=== PATIENT | female | born 1955 | race Caucasian/White ===

== ENCOUNTER → 2018-04-22 10:46 | Outpatient (CLI) | payer OTHER, SELFPAY ==
[2018-04-22 12:28] LABS: Appearance Urine UA SL CLOUDY; Bilirubin Urine UA NEGATIVE (NEGATIVE); Color Urine UA YELLOW; Glucose Urine UA NEGATIVE (Normal); Ketones Urine UA NEGATIVE (NEGATIVE); Leukocyte Esterase Urine UA NEGATIVE (NEGATIVE); Nitrite Urine UA POSITIVE (Negative); Occult Blood Urine UA 1+ (Negative); Protein Urine UA NEGATIVE (Negative); Urobilinogen Urine UA 0.2 E.U./dL (0.2)
[2018-04-22 12:36] LABS: Add Manual Diff / Slide Review NO; Basophils Percent Auto 0.7 % (0-2); Eosinophils Percent Auto 1.4 % (2-4); Hematocrit 40.4 % (36-46); Hemoglobin 13.7 g/dL (12.0-16.0); Lymphocytes Percent Auto 30.3 % (25-40); Mean Corpuscular HGB Conc 33.9 % (30-36); Mean Corpuscular Volume 94.3 fL (80-100); Neutrophils Absolute Auto 4100 /uL (3000-5900); Neutrophils Percent Auto 60.6 % (50-75); Platelet Count 261 X10^3/uL (150-400); Red Blood Cell Count 4.28 X10^6/uL (4.0-5.2); Red Cell Distribution Width 13.2 % (11.6-14.8); White Blood Cell Count 6.9 X10^3/uL (4.5-11.0)
[2018-04-22 12:52] LABS: Bacteria Urine Many (>30); Culture Indicated Urine Specimen Cultured; RBC Urine 1-5/HPF (0-5/HPF); Squamous Epithelial Cell Urine 1-5 /HPF; WBC Urine 10-30/HPF (0-5/HPF)
[2018-04-22 13:06] LABS: Alanine Aminotransferase 20 IU/L (9-52); Albumin 4.5 g/dL (3.5-5.0); Albumin Globulin Ratio 1.7 (1.0-2.8); Alkaline Phosphatase 47 U/L (38-126); Aspartate Aminotransferase 21 IU/L (14-36); BUN Creatinine Ratio 17.1 (6-22); Bilirubin Total 0.7 mg/dL (0.2-1.3); Blood Urea Nitrogen 12 mg/dL (7-17); Calcium 9.8 mg/dL (8.4-10.2); Carbon Dioxide 27 mmol/L (22-32); Chloride 101 mmol/L (98-107); Cholesterol 206 mg/dL (140-199); Estimated Glomerular Filt Rate > 60.0 mL/min (>60); Globulin 2.7 g/dL (1.7-4.1); Glucose 93 mg/dL (80-110); HDL Cholesterol 55 mg/dL (40-60); HEMOLYSIS < 15 (0-50); LDL Cholesterol Calculated 131 mg/dL (<100); Potassium 4.4 mmol/L (3.4-5.1); Sodium 139 mmol/L (137-145); Total Protein 7.2 g/dL (6.3-8.2); Triglycerides 101 mg/dL (35-150)
== END ==
PROVIDERS: PCP Family Medicine; Visit Provider Family Medicine
DX: Z13.220 Encounter for screening for lipoid disorders (principal); R00.2 Palpitations
CPT/HCPCS: 36415; 80053; 80061; 81003; 81015; 84443; 85025; 87077; 87086; 87186

== ENCOUNTER → 2018-05-21 13:11 | Outpatient (CLI) | payer OTHER, SELFPAY ==
--- NOTE | 2018-05-21 13:14 | DI.US.S_ITS ---
PROCEDURE: US CAROTID DOPPLER BI INDICATIONS: Bilateral carotid bruits and palpitations TECHNIQUE: Color and pulse Doppler interrogation was performed of both carotid systems, with image documentation and velocity measurements. COMPARISON: None. FINDINGS: Stenosis calculations are based on SRU (Society of Radiologists in Ultrasound) criteria. Right side: Brachial blood pressure: 145/78 mm Hg. Common carotid artery peak systolic velocity: 71 cm/sec. Internal carotid artery peak systolic velocity: 91 cm/sec. Internal carotid artery end diastolic velocity: 34 cm/sec. External carotid artery peak systolic velocity: 111 cm/sec. ICA/CCA peak systolic ratio: 1.28. Lees scale imaging description: Normal Percent internal carotid artery stenosis: None. Vertebral artery: Flow direction is antegrade. Left side: Brachial blood pressure: 140/75 mm Hg. Common carotid artery peak systolic velocity: 67 cm/sec. Internal carotid artery peak systolic velocity: 93 cm/sec. Internal carotid artery end diastolic velocity: 35 cm/sec. External carotid artery peak systolic velocity: 112 cm/sec. ICA/CCA peak systolic ratio: 1.38. Lees scale imaging description: Normal Percent internal carotid artery stenosis: None. Vertebral artery: Flow direction is antegrade. IMPRESSION: Normal carotid ultrasound Dictated by: Christopher Gustafson M.D. on 05/21/2018 at 14:33 Approved by: Christopher Gustafson M.D. on 05/21/2018 at 14:35
== END ==
PROVIDERS: PCP Family Medicine; Visit Provider Family Medicine
DX: R00.2 Palpitations (principal); R09.89 Other specified symptoms and signs involving the circulatory and respiratory systems
CPT/HCPCS: 93880

== ENCOUNTER → 2018-05-23 08:18 | Outpatient (CLI) | payer OTHER, SELFPAY ==
--- NOTE | 2018-05-23 | DI.ECHO.S_ITS ---
[facility] +---------+ : : [address] [place] : : : : [id number] : : : : Phone: [phone]+ Echocardiogram Report + + :Name: ARTUR STEARNS Study Date: 05/23/2018 Height: 68 in : :[facility] Exam Location: IS Weight: 130 lb : : Gender: Female BSA: 1.7 m2 : :: 1955 Age: 63 yrs BP: 138/70 mmHg: :Reason For Study: PALPITATIONS : :Ordering Physician: Maryellen : :[place] Performed By: Chloe Hoffman : :Referring: MARYELLEN SILVER : + + Interpretation Summary The left ventricle is normal in size, wall thickness, and systolic function without any focal wall motion abnormalities. The ejection fraction is estimated to be 55-60%. The right ventricle is normal in size and function. The right ventricular systolic pressure is estimated at 33 mmHg assuming a right atrial pressure of 3 mm Hg. The left atrium is moderately dilated. The right atrium is mildly dilated. There is no significant valvular heart disease. The aortic root is normal size. There is a trace loculated pericardial effusion. There are no echocardiographic or Doppler indications for cardiac tamponade. Procedure: A two-dimensional transthoracic echocardiogram with color flow and Doppler was performed. The study quality was technically adequate. There is no prior echocardiogram noted for this patient. The patient was in normal sinus rhythm during the exam. Short run of tachycardia. Left Ventricle: The left ventricle is normal in size, wall thickness, and systolic function without any focal wall motion abnormalities. The ejection fraction is estimated to be 55-60%. Assessment of diastolic parameters indicates normal left ventricular diastolic function and normal filling pressures. Right Ventricle: The right ventricle is normal in size and function. Atria: The left atrium is moderately dilated. The right atrium is mildly dilated. There is no Doppler evidence for an interatrial shunt. Mitral Valve: The mitral valve is normal. There is trace mitral regurgitation. Aortic Valve: The aortic valve is normal in structure and function. No aortic regurgitation is present. Tricuspid Valve: The tricuspid valve is normal. There is trace tricuspid regurgitation. The right ventricular systolic pressure is estimated at 33 mmHg assuming a right atrial pressure of 3 mm Hg. Pulmonic Valve: The pulmonic valve leaflets are thin and pliable; valve motion is normal. There is a trace or physiologic amount of pulmonic regurgitation. There is no significant valvular heart disease. Great Vessels: The aortic root is normal size. The ascending aorta is normal in size. The aortic arch is normal in size. The pulmonary is not well visualized. The IVC is of normal diameter and collapses greater than 50% with a sniff. This suggests a low right atrial pressure of 3 mm Hg. Pericardium/ Pleura There is a trace loculated pericardial effusion. There are no echocardiographic or Doppler indications for cardiac tamponade. There is no pleural effusion. MMode/2D Measurements & Calculations LVIDd: 4.2 cm LVOT diam: 2.3 cm LVIDs: 3.6 cm Ao root diam: 3.3 cm FS: 15.1 % asc Aorta Diam: 3.2 cm EPSS: 0.30 cm Ao Arch Diam (Prox Trans): 2.5 cm IVSd: 0.77 cm LVPWd: 0.88 cm LV barnhart. diameter/BSA (cm/m^2): 2.5 LV sys. diameter/BSA (cm/m^2): 2.1 LA A2 area: 27.6 cm2 RA long axis: 5.1 cm LA A4 area: 20.9 cm2 RA area: 17.7 cm2 LA length (vol): 6.1 cm RA vol: 52.7 ml LA vol: 80.2 ml RA : 31.0 ml/m2 LA vol index: 47.1 ml/m2 IVC diam: 0.95 cm RVD1 (basal): 3.4 cm RVD2 (mid): 2.2 cm TAPSE: 2.3 cm Doppler Measurements & Calculations Ao V2 max: 127.0 cm/sec LVOT Max Keny: 105.8 cm/sec Ao V2 mean: 83.0 cm/sec LV V1 max P.5 mmHg Ao max P.4 mmHg LV V1 VTI: 22.2 cm Ao mean P.2 mmHg CLAYTON(I,D): 3.5 cm2 Ao V2 VTI: 25.5 cm CLAYTON(V,D): 3.4 cm2 sev ratio: 0.87 CLAYTON indexed to BSA (cm^2/m^2): 2.1 MV E max keny: 77.3 cm/sec TR max keny: 275.5 cm/sec MV A max keny: 72.6 cm/sec TR max P.4 mmHg MV E/A: 1.1 PA V2 max: 75.8 cm/sec Med Peak E' Keny: 9.2 cm/sec PA V2 mean: 51.8 cm/sec E/E' med: 8.4 PA mean P.2 mmHg Lat Peak E' Keny: 9.9 cm/sec PA pr(Accel): 32.4 mmHg E/E' lat: 7.8 E/e' average: 8.1 MV dec time: 0.20 sec MV P1/2t: 59.0 msec MV P1/2t max keny: 77.5 cm/sec MVA(P1/2t): 3.7 cm2 Reading Physician:MARGARITO
== END ==
PROVIDERS: PCP Family Medicine; Visit Provider Family Medicine
DX: R00.2 Palpitations (principal); I51.7 Cardiomegaly
CPT/HCPCS: 93306

== ENCOUNTER → 2019-12-14 12:15 | Outpatient (CLI) | payer OTHER, SELFPAY ==
[2019-12-14 13:18] LABS: Hematocrit 39.5 % (36-46); Hemoglobin 13.5 g/dL (12.0-16.0); Mean Corpuscular HGB Conc 34.2 % (30-36); Mean Corpuscular Hemoglobin 31.1 PG (26-34); Mean Corpuscular Volume 91.1 fL (80-100); Platelet Count 284 X10^3/uL (150-400); Red Blood Cell Count 4.33 X10^6/uL (4.0-5.2); Red Cell Distribution Width 13.7 % (11.6-14.8); White Blood Cell Count 7.1 X10^3/uL (4.5-11.0)
[2019-12-14 13:27] LABS: Alanine Aminotransferase 11 IU/L (<35); Albumin 4.3 g/dL (3.5-5.0); Albumin Globulin Ratio 1.4 (1.0-2.8); Alkaline Phosphatase 46 U/L (38-126); Aspartate Aminotransferase 25 IU/L (14-36); BUN Creatinine Ratio 21.3 (6-22); Bilirubin Total 0.3 mg/dL (0.2-1.3); Blood Urea Nitrogen 17 mg/dL (7-17); Calcium 9.6 mg/dL (8.4-10.2); Carbon Dioxide 25 mmol/L (22-32); Chloride 103 mmol/L (98-107); Cholesterol 209 mg/dL (140-199); Estimated Glomerular Filt Rate > 60.0 mL/min (>60); Globulin 3.1 g/dL (1.7-4.1); Glucose 92 mg/dL (80-110); HDL Cholesterol 39 mg/dL (40-60); HEMOLYSIS < 15 (0-50); LDL Cholesterol Calculated 126 mg/dL (<100); Sodium 138 mmol/L (137-145); Total Protein 7.4 g/dL (6.3-8.2); Triglycerides 220 mg/dL (35-150)
[2019-12-14 13:32] LABS: High Sensitivity CRP - Cardiac 0.9 mg/L (1.0-3.0)
[2019-12-14 14:16] LABS: TSH w/ Reflex to FT4 2.02 uIU/mL (0.47-4.68)
[2019-12-14 14:52] LABS: Neutrophils Absolute Manual 5112 /uL (3000-5900); Total Cells Counted 100
[2019-12-14 14:53] LABS: RBC Morphology Normal Morphology
== END ==
PROVIDERS: PCP Family Medicine; Referring Provider Internal Medicine; Visit Provider Internal Medicine
DX: Z13.220 Encounter for screening for lipoid disorders (principal); R09.89 Other specified symptoms and signs involving the circulatory and respiratory systems; R00.2 Palpitations
CPT/HCPCS: 36415; 80053; 80061; 84443; 85025; 86140

== ENCOUNTER → 2020-04-02 14:15 | Outpatient (CLI) | payer OTHER, SELFPAY ==
--- NOTE | 2020-04-02 14:18 | DI.MG.S_ITS ---
BILATERAL DIGITAL SCREENING MAMMOGRAM 3D/2D WITH CAD: 04/02/2020 CLINICAL: Routine screening. Family history of breast cancer. Comparison is made to exam dated: [facility]. The tissue of both breasts is heterogeneously dense. This may lower the sensitivity of mammography. Current study was also evaluated with a Computer Aided Detection (CAD) system. No significant masses, calcifications, or other findings are seen in either breast. There has been no significant interval change. IMPRESSION: NEGATIVE There is no mammographic evidence of malignancy. A 1 year screening mammogram is recommended. This exam was interpreted at Station ID: [id number]. NOTE: For mammograms, a report in lay terms will be sent to the patient. Approximately 15% of breast malignancies will not be visualized mammographically. In the management of a palpable breast mass, a negative mammogram must not discourage biopsy of a clinically suspicious lesion. Electronically Signed By: Long nolan/aniya:04/04/2020 08:06:40 copy to: LINDA SAMPSON letter sent: Normal Exam ACR BI-RADS Category 1: Negative [id number]
== END ==
PROVIDERS: PCP Internal Medicine; Referring Provider Internal Medicine; Visit Provider Specialist
DX: Z12.31 Encounter for screening mammogram for malignant neoplasm of breast (principal); Z80.3 Family history of malignant neoplasm of breast
CPT/HCPCS: 77063; 77067

== ENCOUNTER → 2020-04-26 09:35 | Outpatient (CLI) | payer OTHER, SELFPAY ==
[2020-04-27 06:43] LABS: COVID19 Sendout Not Detected (Not Detect)
== END ==
PROVIDERS: PCP Internal Medicine; Visit Provider Physician Assistant
DX: Z01.812 Encounter for preprocedural laboratory examination (principal)
CPT/HCPCS: 87635

== ENCOUNTER → 2020-04-29 13:56 | Outpatient (CLI) | payer OTHER, SELFPAY ==
--- NOTE | 2020-05-04 09:53 | PM.PFT.1 ---
Pulmonary Function Test Referral & Results Date Patient Seen: 04/29/20 Requesting provider: Bridget Costa Results: The spirometry demonstrates an FVC of 3.62 L which is 98% of predicted. The FEV1 was measured at 2.53 L which is 89% of predicted. The FEV1/FVC ratio was 70 which is 90% of predicted. Following the administration of bronchodilator there was no appreciable change. Lung volumes show an SVC of 3.56 L which is 105% of predicted. The diffusing capacity was measured at 26.17 which is 88% of predicted. The maximum voluntary ventilation was minimally reduced Interpretation: This study is probably normal. There does not appear to be any evidence of chronic lung disease based on this study.
== END ==
PROVIDERS: PCP Internal Medicine; Referring Provider Internal Medicine; Visit Provider Internal Medicine
DX: R05 Cough (principal); J98.8 Other specified respiratory disorders
CPT/HCPCS: 94060; 94726; 94729

== ENCOUNTER → 2020-05-03 12:00 | Outpatient (CLI) | payer OTHER, SELFPAY ==
--- NOTE | 2020-05-03 | DI.RAD.S_ITS ---
PROCEDURE: XR CHEST 2V INDICATIONS: COUGH TECHNIQUE: 2 views of the chest were acquired. COMPARISON: None. FINDINGS: Surgical changes and devices: None. Lungs and pleura: Lungs are clear. No pleural effusions or pneumothorax. Mediastinum: Mediastinal contours are normal. Heart size is normal. Bones and chest wall: No suspicious bony abnormalities. Soft tissues appear unremarkable. IMPRESSION: Normal for age, source of current cough symptoms is not seen. Dictated by: Charlie Delacruz M.D. on 05/03/2020 at 12:32 Approved by: Charlie Delacruz M.D. on 05/03/2020 at 12:32
== END ==
PROVIDERS: PCP Internal Medicine; Referring Provider Internal Medicine; Visit Provider Internal Medicine
DX: R05 Cough (principal)
CPT/HCPCS: 71046

== ENCOUNTER → 2021-01-27 13:37 | Outpatient (CLI) | payer OTHER, SELFPAY ==
--- NOTE | 2021-01-27 13:39 | DI.RAD.S_ITS ---
PROCEDURE: XR DEXA AXIAL SKELETON INDICATIONS: Asymptomatic menopausal state COMPARISON: None. FINDINGS: This blank DEXA report has been sent in error by the PACS system. The correct and complete report will be forthcoming in 1-2 days. Thank you for your patience and understanding. Dictated by: Sophia Omalley MD, PhD on 01/30/2021 at 13:29 Approved by: Sophia Omalley MD, PhD on 01/30/2021 at 13:29
== END ==
PROVIDERS: PCP Internal Medicine; Referring Provider Internal Medicine; Visit Provider Internal Medicine
DX: M85.851 Other specified disorders of bone density and structure, right thigh (principal); Z78.0 Asymptomatic menopausal state
CPT/HCPCS: 77080

== ENCOUNTER → 2021-02-01 12:12 | Outpatient (CLI) | payer OTHER, SELFPAY ==
--- NOTE | 2021-02-01 12:14 | DI.CT.S_ITS ---
PROCEDURE: CT CHEST WO CON INDICATIONS: Cough TECHNIQUE: Noncontrast 5 mm thick sections acquired from the pulmonary apices to the posterior costophrenic angles. 1 mm lung window, 5 mm thick coronal and sagittal and 7 mm axial MIP reformats were then acquired. For radiation dose reduction, the following was used: automated exposure control, adjustment of mA and/or kV according to patient size. COMPARISON: [facility], CR, XR CHEST 2V, 05/03/2020, 11:54. FINDINGS: Image quality: Excellent. Lungs and pleura: No acute air space opacities. No pleural effusions or pneumothorax. Central and peripheral airways are patent and normal in caliber. Lung volumes are large, which may reflect a prior smoking history. Mediastinum: Heart size is normal. No pericardial effusion. No mediastinal adenopathy by size criteria. Thoracic aorta and central pulmonary arteries are normal in size. Esophagus is normal in caliber. No hiatal hernia. Bones and chest wall: No suspicious bony lesions. No vertebral body compression fractures. No axillary or supraclavicular adenopathy by size criteria. Thyroid gland is not well seen by this noncontrast technique. It appears normal where well visualized. . Abdomen: Visualized upper abdominal solid organs and bowel loops appear normal in the absence of contrast. IMPRESSION: Large lung volumes, which may reflect prior smoking history. Bullous emphysematous change is not seen. Within the lung parenchyma there is no sign of pneumonia and no mass lesion or evidence of bronchial inflammation or mass is seen. Overall, source of cough is not found. Dictated by: Charlie Delacruz M.D. on 02/01/2021 at 12:43 Approved by: Charlie Delacruz M.D. on 02/01/2021 at 12:55
== END ==
PROVIDERS: PCP Internal Medicine; Referring Provider Internal Medicine; Visit Provider Internal Medicine
DX: R05 Cough (principal)
CPT/HCPCS: 71250

== ENCOUNTER → 2022-02-15 10:13 | Outpatient (CLI) | payer OTHER, SELFPAY ==
--- NOTE | 2022-02-15 | DI.MG.S_ITS ---
BILATERAL DIGITAL SCREENING MAMMOGRAM 3D/2D WITH CAD: 02/15/2022 CLINICAL: Routine screening. Family history of breast cancer. Comparison is made to exams dated: 04/02/2020 mammogram and 02/15/2016 mammogram - [facility]. The tissue of both breasts is heterogeneously dense. This may lower the sensitivity of mammography. Current study was also evaluated with a Computer Aided Detection (CAD) system. No significant masses, calcifications, or other findings are seen in either breast. There has been no significant interval change. IMPRESSION: NEGATIVE There is no mammographic evidence of malignancy. A 1 year screening mammogram is recommended. This exam was interpreted at Station ID: [id number]. NOTE: For mammograms, a report in lay terms will be sent to the patient. Approximately 15% of breast malignancies will not be visualized mammographically. In the management of a palpable breast mass, a negative mammogram must not discourage biopsy of a clinically suspicious lesion. Electronically Signed By: Dawson Gilbert M.D., jr/aniya:02/15/2022 12:07:25 copy to: LINDA SAMPSON letter sent: Normal Exam ACR BI-RADS Category 1: Negative [id number]
== END ==
PROVIDERS: PCP Student in an Organized Health Care Education/Training Program; Referring Provider Student in an Organized Health Care Education/Training Program; Visit Provider Student in an Organized Health Care Education/Training Program
DX: Z12.31 Encounter for screening mammogram for malignant neoplasm of breast (principal); Z80.3 Family history of malignant neoplasm of breast
CPT/HCPCS: 77063; 77067

== ENCOUNTER → 2022-02-22 11:12 | Outpatient (CLI) | payer OTHER, SELFPAY ==
--- NOTE | 2022-02-22 | DI.CT.S_ITS ---
PROCEDURE: CT SINUS SCREEN WO CON INDICATIONS: Cough/Chronic pansinusitis TECHNIQUE: Noncontrast 3.0 mm axial images acquired from the frontal sinuses to the mid-sella, with coronal and sagittal reformats. For radiation dose reduction, the following was used: automated exposure control, adjustment of mA and/or kV according to patient size. COMPARISON: None. FINDINGS: Image quality: Excellent. Maxillary Sinuses: No bony remodeling or destruction. Sinuses are clear. Ethmoid Air Cells: No bony remodeling or destruction. Sinuses are clear. Sphenoid Sinuses: No bony remodeling or destruction. Sinuses are clear. Frontal Sinuses: No bony remodeling or destruction. Sinuses are clear. Ostiomeatal Complexes: Ostiomeatal complexes are patent, yet they are constitutionally narrowed. No Humaira cells. Miscellaneous: Visualized intra-orbital contents are normal. 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 Note is made of degenerative change of both temporomandibular joints. IMPRESSION: No active paranasal sinus disease is seen. Right-sided henrietta bullosa, with moderate leftward nasal septal deviation. Patent, yet narrowed, ostiomeatal complexes. Dictated by: Rome Nick M.D. on 02/22/2022 at 10:54 Approved by: Rome Nick M.D. on 02/22/2022 at 10:55
== END ==
PROVIDERS: PCP Student in an Organized Health Care Education/Training Program; Referring Provider Otolaryngology; Visit Provider Otolaryngology
DX: J32.4 Chronic pansinusitis (principal); R05.9 Cough, unspecified; J34.3 Hypertrophy of nasal turbinates; J34.2 Deviated nasal septum
CPT/HCPCS: 70486

== ENCOUNTER 2022-03-15 13:35 | Emergency (ER) | payer OTHER, SELFPAY ==
[2022-03-15] VITALS (15 sets, daily range): BP systolic 138–180; BP diastolic 71–89; PULSE 69–101; RESP 13–21; TEMP 36.9; O2SAT 96–99; BMI 20.5
[2022-03-15 14:04] LABS: Add Manual Diff / Slide Review NO; Basophils Absolute Auto 100 /uL (0-100); Eosinophils Absolute Auto 100 /uL (0-450); Eosinophils Percent Auto 0.9 % (2-4); Hematocrit 39.5 % (36-46); Hemoglobin 13.6 g/dL (12.0-16.0); Lymphocytes Absolute Auto 2100 /uL (1100-4500); Mean Corpuscular HGB Conc 34.3 % (30-36); Mean Corpuscular Hemoglobin 30.9 PG (26-34); Mean Corpuscular Volume 89.9 fL (80-100); Monocytes Absolute Auto 500 /uL (0-900); Monocytes Percent Auto 5.7 % (3-14); Neutrophils Absolute Auto 5800 /uL (1500-7000); Neutrophils Percent Auto 67.4 % (50-75); Platelet Count 310 X10^3/uL (150-400); Red Cell Distribution Width 13.1 % (11.6-14.8); White Blood Cell Count 8.5 X10^3/uL (4.5-11.0)
[2022-03-15 14:17] LABS: BUN Creatinine Ratio 20.5 (6-22); Blood Urea Nitrogen 16 mg/dL (7-17); Carbon Dioxide 27 mmol/L (22-32); Chloride 102 mmol/L (98-107); Estimated Glomerular Filt Rate > 60 mL/min (>60); Glucose 120 mg/dL (80-110); HEMOLYSIS 37 (0-50); Potassium 4.1 mmol/L (3.4-5.1); Sodium 137 mmol/L (137-145)
[2022-03-15 14:29] LABS: Troponin I < 0.012 ng/mL (0.01-0.034)
--- NOTE | 2022-03-15 14:42 | DI.RAD.S_ITS ---
PROCEDURE: XR CHEST 1V INDICATIONS: lightheaded TECHNIQUE: One view of the chest was acquired. COMPARISON: [facility], CR, XR CHEST 2V, 05/03/2020, 11:54. FINDINGS: Surgical changes and devices: None. Lungs and pleura: Lungs are clear. No pleural effusions or pneumothorax. Mediastinum: Mediastinal contours appear normal. Heart size is normal. Bones and chest wall: No suspicious bony lesions. Overlying soft tissues appear unremarkable. IMPRESSION: No acute cardiopulmonary pathology. Dictated by: Vik Soto M.D. on 03/15/2022 at 14:57 Approved by: Vki Soto M.D. on 03/15/2022 at 14:58
--- NOTE | 2022-03-15 16:23 | ED.DIZZY ---
HPI - Dizziness <Carmina Rowley DO - Last Filed: 03/22/22 19:17> General Chief Complaint: Dizziness Stated Complaint: Episodes of lightheadedness- referred by PCP Time Seen by Provider: 03/15/22 14:41 Source: patient Mode of arrival: Ambulatory Limitations: no limitations Related Data Previous Rx's Medication Instructions Recorded estradiol 1 mg tablet See Rx Instructions .ROUTE 11/25/20 .COMPLEX #90 tab norethindrone (contraceptive) 0.35 0.35 mg PO QDAY #168 tab 11/25/20 mg tablet (Yarely) clonazepam 0.5 mg tablet 0.25 mg PO BID PRN #20 tab 03/15/22 cephalexin 500 mg capsule 500 mg PO BID 7 Days #14 cap 03/18/22 Allergies Allergy/AdvReac Type Severity Reaction Status Date / Time No Known Drug Allergies Allergy Verified 01/08/20 15:57 <Kathrin Dominguez MD - Last Filed: 03/15/22 19:12> History of Present Illness HPI Narrative: 67-year-old woman with no significant medical history currently on estradiol as hormone replacement therapy presents with 2 weeks of near syncopal episodes. She describes initial episode on March 02 while she was driving. She felt like the car was closing in and she was about to lose consciousness. She did not notice associated palpitations with that episode but did go on to have 3 more episodes within the next couple of hours. Over the next 2 weeks she has had similar episodes that are not associated with exertion, rest, eating, fasting. She does occasionally note palpitations associated with the episodes and has had 1 clear episode with very rapid heart rate that was not associated with this near syncopal feeling. It sounds like she has occasional either PACs or PVCs and did have a cardiac rate evaluation with an event monitor in 2018. She describes no recent fevers, cough, chills, COVID infections, vomiting, diarrhea, abdominal pain, headaches, acute neurologic changes aside from the near syncopal symptoms described above. Review of Systems <Carmina Rowley DO - Last Filed: 03/22/22 19:17> Review of Systems ROS Unobtainable: All systems reviewed & are unremarkable except as noted in HPI and below <Kathrin Dominguez MD - Last Filed: 03/15/22 19:12> Review of Systems Narrative: Remainder of complete review of systems is otherwise unremarkable except for that included in the HPI. Patient History <Carmina C DO Amrik - Last Filed: 03/22/22 19:17> Medical History (Updated 03/15/22 @ 19:08 by Kathrin Dominguez MD) Anemia (Unknown) Chicken pox Herpes (1984) Kidney stones (~2004) Measles (Unknown) Mumps (Unknown) Surgical History Hx of Achilles tendon repair (1999) Hx of section (Unknown) Family History Mother Age: 86 Hypertension High cholesterol Stroke Father No problems noted. Social History Smoking Status: Never smoker alcohol intake: current Smoking Status: Never smoker alcohol intake frequency: 0-2 drinks per day Substance Use Type: does not use Exam <Carmina Aren Rowley DO - Last Filed: 03/22/22 19:17> Initial Vital Signs Initial Vital Signs: Vital Signs Temperature 98.5 F 03/15/22 13:38 Pulse Rate 101 H 03/15/22 13:38 Respiratory Rate 16 03/15/22 13:38 Blood Pressure 180/89 H 03/15/22 13:38 Pulse Oximetry 97 03/15/22 13:38 <Kathrin Dominguez MD - Last Filed: 03/15/22 19:12> Initial Vital Signs Initial Vital Signs: Vital Signs Temperature 98.5 F 03/15/22 13:38 Pulse Rate 101 H 03/15/22 13:38 Respiratory Rate 16 03/15/22 13:38 Blood Pressure 180/89 H 03/15/22 13:38 Pulse Oximetry 97 03/15/22 13:38 General: Healthy appearing, in no acute distress. Able to give a complete and coherent history. Well-nourished well-developed HEENT: Moist mucous membranes, normal sclera with reactive pupils, no carotid bruits Neck: No JVD, supple Respiratory: Lungs are clear to auscultation, no wheezing no rales no rhonchi. Full and symmetrical air movement Cardiac: Regular rate and rhythm no murmurs no bruits Abdomen: Soft, nontender, good bowel tones, no palpable abdominal masses, no flank pain Skin: Warm and dry, no rashes Neurologic: Grossly neurologically intact with no obvious asymmetries or abnormalities Extremities: No trauma, well perfused, full dorsalis pedis pulses bilaterally Psych: Cooperative, appropriate insight and affect <Polly Bo DO - Last Filed: 03/18/22 09:53> Initial Vital Signs Initial Vital Signs: Vital Signs Temperature 98.5 F 03/15/22 13:38 Pulse Rate 101 H 03/15/22 13:38 Respiratory Rate 16 03/15/22 13:38 Blood Pressure 180/89 H 03/15/22 13:38 Pulse Oximetry 97 03/15/22 13:38 Course <Carmina Rowley DO - Last Filed: 03/22/22 19:17> Orders Ordered: Discontinued Medications Clonazepam (Clonazepam 0.5 Mg Tablet) 0.25 mg PO NOW ONE Stop: 03/15/22 18:57 Last Admin: 03/15/22 19:16 Dose: 0.25 mg Documented by: BEVERLY Vital Signs Vital signs: Vital Signs - 8 hr 03/15/22 13:38 03/15/22 14:24 03/15/22 14:25 Temperature 98.5 F Pulse Rate 101 H 82 81 Respiratory Rate 16 18 21 Blood Pressure 180/89 H 171/77 H Pulse Oximetry 97 98 98 03/15/22 14:30 03/15/22 15:00 03/15/22 15:30 Temperature Pulse Rate 79 82 79 Respiratory Rate 13 21 20 Blood Pressure 156/78 H 156/76 H 152/72 H Pulse Oximetry 98 96 97 03/15/22 16:00 03/15/22 16:30 03/15/22 16:33 Temperature Pulse Rate 76 76 72 Respiratory Rate 19 19 18 Blood Pressure 138/72 147/72 H 147/72 H Pulse Oximetry 97 97 98 03/15/22 17:00 03/15/22 17:30 Temperature Pulse Rate 72 76 Respiratory Rate 18 18 Blood Pressure 149/71 H 144/72 H Pulse Oximetry 98 96 <Kathrin Dominguez MD - Last Filed: 03/15/22 19:12> Orders Ordered: Discontinued Medications Clonazepam (Clonazepam 0.5 Mg Tablet) 0.25 mg PO NOW ONE Stop: 03/15/22 18:57 Last Admin: 03/15/22 19:16 Dose: 0.25 mg Documented by: BEVERLY Vital Signs Vital signs: Vital Signs - 8 hr 03/15/22 13:38 03/15/22 14:24 03/15/22 14:25 Temperature 98.5 F Pulse Rate 101 H 82 81 Respiratory Rate 16 18 21 Blood Pressure 180/89 H 171/77 H Pulse Oximetry 97 98 98 03/15/22 14:30 03/15/22 15:00 03/15/22 15:30 Temperature Pulse Rate 79 82 79 Respiratory Rate 13 21 20 Blood Pressure 156/78 H 156/76 H 152/72 H Pulse Oximetry 98 96 97 03/15/22 16:00 03/15/22 16:30 03/15/22 16:33 Temperature Pulse Rate 76 76 72 Respiratory Rate 19 19 18 Blood Pressure 138/72 147/72 H 147/72 H Pulse Oximetry 97 97 98 03/15/22 17:00 03/15/22 17:30 Temperature Pulse Rate 72 76 Respiratory Rate 18 18 Blood Pressure 149/71 H 144/72 H Pulse Oximetry 98 96 <Polly Bo, - Last Filed: 03/18/22 09:53> Orders Ordered: Discontinued Medications Clonazepam (Clonazepam 0.5 Mg Tablet) 0.25 mg PO NOW ONE Stop: 03/15/22 18:57 Last Admin: 03/15/22 19:16 Dose: 0.25 mg Documented by: BEVERLY Vital Signs Vital signs: Vital Signs - 8 hr 03/15/22 13:38 03/15/22 14:24 03/15/22 14:25 Temperature 98.5 F Pulse Rate 101 H 82 81 Respiratory Rate 16 18 21 Blood Pressure 180/89 H 171/77 H Pulse Oximetry 97 98 98 03/15/22 14:30 03/15/22 15:00 03/15/22 15:30 Temperature Pulse Rate 79 82 79 Respiratory Rate 13 21 20 Blood Pressure 156/78 H 156/76 H 152/72 H Pulse Oximetry 98 96 97 03/15/22 16:00 03/15/22 16:30 03/15/22 16:33 Temperature Pulse Rate 76 76 72 Respiratory Rate 19 19 18 Blood Pressure 138/72 147/72 H 147/72 H Pulse Oximetry 97 97 98 03/15/22 17:00 05/19/22 17:30 Temperature Pulse Rate 72 76 Respiratory Rate 18 18 Blood Pressure 149/71 H 144/72 H Pulse Oximetry 98 96 MDM - Dizziness <Carmina Rowley, - Last Filed: 03/22/22 19:17> Lab Data Result diagrams: 03/15/22 13:52 03/15/22 13:52 Labs: Lab Results 03/15/22 03/15/22 03/15/22 Range/Units 13:52 13:52 16:43 WBC 8.5 (4.5-11.0) X10^3/uL RBC 4.40 (4.0-5.2) X10^6/uL Hgb 13.6 (12.0-16.0) g/dL Hct 39.5 (36-46) % MCV 89.9 (80-100) fL MCH 30.9 (26-34) PG MCHC 34.3 (30-36) % RDW 13.1 (11.6-14.8) % Plt Count 310 (150-400) X10^3/uL Neut % (Auto) 67.4 (50-75) % Lymph % (Auto) 25.0 (25-40) % [place] % (Auto) 5.7 (3-14) % Eos % (Auto) 0.9 L (2-4) % Baso % (Auto) 1.0 (0-2) % Neut # (Auto) 5800 (0557-9982) /uL Lymph # (Auto) 2100 (3093-6745) /uL [place]er # (Auto) 500 (0-900) /uL Eos # (Auto) 100 (0-450) /uL Baso # (Auto) 100 (0-100) /uL Sodium 137 (137-145) mmol/L Potassium 4.1 (3.4-5.1) mmol/L Chloride 102 (98-107) mmol/L Carbon Dioxide 27 (22-32) mmol/L BUN 16 (7-17) mg/dL Creatinine 0.78 (0.52-1.04) mg/dL Estimated GFR > 60 (>60) mL/min BUN/Creatinine Ratio 20.5 (6-22) Glucose 120 H (80-110) mg/dL Calcium 10.0 (8.4-10.2) mg/dL Troponin I < 0.012 < 0.012 (0.01-0.034) ng/mL Urine Color Urine Appearance Urine pH (4.5-8.0) Ur Specific [place] (1.000-1.035) Urine Protein (Negative) Urine Glucose (UA) (Negative) g/dL Urine Ketones (NEGATIVE) Urine Occult Blood (Negative) Urine Nitrate (Negative) Urine Bilirubin (NEGATIVE) Urine Urobilinogen (0.2) E.U./dL Ur Leukocyte Esterase (NEGATIVE) Urine RBC (0-5/HPF) Urine WBC (0-5/HPF) Ur Squamous Epith Cells (0-5/HPF) Urine Bacteria (None) Ur Culture Indicated? 03/15/22 Range/Units 17:43 WBC (4.5-11.0) X10^3/uL RBC (4.0-5.2) X10^6/uL Hgb (12.0-16.0) g/dL Hct (36-46) % MCV (80-100) fL MCH (26-34) PG MCHC (30-36) % RDW (11.6-14.8) % Plt Count (150-400) X10^3/uL Neut % (Auto) (50-75) % Lymph % (Auto) (25-40) % [place] % (Auto) (3-14) % Eos % (Auto) (2-4) % Baso % (Auto) (0-2) % Neut # (Auto) (0562-2045) /uL Lymph # (Auto) (1493-6674) /uL [place] # (Auto) (0-900) /uL Eos # (Auto) (0-450) /uL Baso # (Auto) (0-100) /uL Sodium (137-145) mmol/L Potassium (3.4-5.1) mmol/L Chloride (98-107) mmol/L Carbon Dioxide (22-32) mmol/L BUN (7-17) mg/dL Creatinine (0.52-1.04) mg/dL Estimated GFR (>60) mL/min BUN/Creatinine Ratio (6-22) Glucose (80-110) mg/dL Calcium (8.4-10.2) mg/dL Troponin I (0.01-0.034) ng/mL Urine Color Yellow Urine Appearance Clear Urine pH 5.5 (4.5-8.0) Ur Specific [place] 1.010 (1.000-1.035) Urine Protein Negative (Negative) Urine Glucose (UA) Negative (Negative) g/dL Urine Ketones 1+ H (NEGATIVE) Urine Occult Blood 1+ H (Negative) Urine Nitrate Positive H (Negative) Urine Bilirubin Negative (NEGATIVE) Urine Urobilinogen 0.2 (0.2) E.U./dL Ur Leukocyte Esterase Trace H (NEGATIVE) Urine RBC None seen (0-5/HPF) Urine WBC 1-5/hpf (0-5/HPF) Ur Squamous Epith Cells 1-5 /hpf (0-5/HPF) Urine Bacteria Many (>30) H (None) Ur Culture Indicated? Specimen cultured MDM Narrative Medical decision making narrative: 67-year-old woman with 2 weeks of increasing near syncopal episodes. No evidence of acute coronary syndrome, carotid bruits to suggest neurologic etiology, no significant infection, no significant anemia or evidence of bleeding. Care is reviewed with on-call Cardiology and we will expedite outpatient follow-up for event monitoring to see if we can document cardiac arrhythmia. All findings reviewed with patient and her , questions are answered. At this point she is safe for home discharge and clear instructions are given to return to the emergency department should she have recurrent events or actual syncopal episode. 03/18/22 (Anupam) this is supposed to be an addendum to chart. I never saw or evaluated patient. Reviewing cultures. Urine culture came back with E coli. Pansensitive. Prescription for Keflex is sent to [facility]. Nursing staff to call patient. 03/22/22 (Amrik) patient was not seen or evaluated by myself. Chart had been assigned to myself by accident. <Kathrin Dominguez MD - Last Filed: 03/15/22 19:12> Lab Data Labs: Lab Results 03/15/22 03/15/22 03/15/22 Range/Units 13:52 13:52 16:43 WBC 8.5 (4.5-11.0) X10^3/uL RBC 4.40 (4.0-5.2) X10^6/uL Hgb 13.6 (12.0-16.0) g/dL Hct 39.5 (36-46) % MCV 89.9 (80-100) fL MCH 30.9 (26-34) PG MCHC 34.3 (30-36) % RDW 13.1 (11.6-14.8) % Plt Count 310 (150-400) X10^3/uL Neut % (Auto) 67.4 (50-75) % Lymph % (Auto) 25.0 (25-40) % [place] % (Auto) 5.7 (3-14) % Eos % (Auto) 0.9 L (2-4) % Baso % (Auto) 1.0 (0-2) % Neut # (Auto) 5800 (9209-0799) /uL Lymph # (Auto) 2100 (8656-6969) /uL [place] # (Auto) 500 (0-900) /uL Eos # (Auto) 100 (0-450) /uL Baso # (Auto) 100 (0-100) /uL Sodium 137 (137-145) mmol/L Potassium 4.1 (3.4-5.1) mmol/L Chloride 102 (98-107) mmol/L Carbon Dioxide 27 (22-32) mmol/L BUN 16 (7-17) mg/dL Creatinine 0.78 (0.52-1.04) mg/dL Estimated GFR > 60 (>60) mL/min BUN/Creatinine Ratio 20.5 (6-22) Glucose 120 H (80-110) mg/dL Calcium 10.0 (8.4-10.2) mg/dL Troponin I < 0.012 < 0.012 (0.01-0.034) ng/mL Urine Color Urine Appearance Urine pH (4.5-8.0) Ur Specific [place] (1.000-1.035) Urine Protein (Negative) Urine Glucose (UA) (Negative) g/dL Urine Ketones (NEGATIVE) Urine Occult Blood (Negative) Urine Nitrate (Negative) Urine Bilirubin (NEGATIVE) Urine Urobilinogen (0.2) E.U./dL Ur Leukocyte Esterase (NEGATIVE) Urine RBC (0-5/HPF) Urine WBC (0-5/HPF) Ur Squamous Epith Cells (0-5/HPF) Urine Bacteria (None) Ur Culture Indicated? 03/15/22 Range/Units 17:43 WBC (4.5-11.0) X10^3/uL RBC (4.0-5.2) X10^6/uL Hgb (12.0-16.0) g/dL Hct (36-46) % MCV (80-100) fL MCH (26-34) PG MCHC (30-36) % RDW (11.6-14.8) % Plt Count (150-400) X10^3/uL Neut % (Auto) (50-75) % Lymph % (Auto) (25-40) % [place] % (Auto) (3-14) % Eos % (Auto) (2-4) % Baso % (Auto) (0-2) % Neut # (Auto) (3313-5158) /uL Lymph # (Auto) (4021-8538) /uL [place] # (Auto) (0-900) /uL Eos # (Auto) (0-450) /uL Baso # (Auto) (0-100) /uL Sodium (137-145) mmol/L Potassium (3.4-5.1) mmol/L Chloride (98-107) mmol/L Carbon Dioxide (22-32) mmol/L BUN (7-17) mg/dL Creatinine (0.52-1.04) mg/dL Estimated GFR (>60) mL/min BUN/Creatinine Ratio (6-22) Glucose (80-110) mg/dL Calcium (8.4-10.2) mg/dL Troponin I (0.01-0.034) ng/mL Urine Color Yellow Urine Appearance Clear Urine pH 5.5 (4.5-8.0) Ur Specific [place] 1.010 (1.000-1.035) Urine Protein Negative (Negative) Urine Glucose (UA) Negative (Negative) g/dL Urine Ketones 1+ H (NEGATIVE) Urine Occult Blood 1+ H (Negative) Urine Nitrate Positive H (Negative) Urine Bilirubin Negative (NEGATIVE) Urine Urobilinogen 0.2 (0.2) E.U./dL Ur Leukocyte Esterase Trace H (NEGATIVE) Urine RBC None seen (0-5/HPF) Urine WBC 1-5/hpf (0-5/HPF) Ur Squamous Epith Cells 1-5 /hpf (0-5/HPF) Urine Bacteria Many (>30) H (None) Ur Culture Indicated? Specimen cultured Imaging Data Chest x-ray: Radiologist's Impression: FINDINGS:? ? Surgical changes and devices:? None.? ? Lungs and pleura:? Lungs are clear.? No pleural effusions or pneumothorax.? ? Mediastinum:? Mediastinal contours appear normal.? Heart size is normal.? ? Bones and chest wall:? No suspicious bony lesions.? Overlying soft tissues appear unremarkable.? ? IMPRESSION:? No acute cardiopulmonary pathology. ? ? Dictated by: Vik Soto M.D. on 03/15/2022 at 14:57? ?? ECG Data Interpretation: Sinus rhythm at a rate of 87 Normal intervals, normal axis No acute ischemic changes MDM Narrative Medical decision making narrative: 67-year-old woman with 2 weeks of increasing near syncopal episodes. No evidence of acute coronary syndrome, carotid bruits to suggest neurologic etiology, no significant infection, no significant anemia or evidence of bleeding. Care is reviewed with on-call Cardiology and we will expedite outpatient follow-up for event monitoring to see if we can document cardiac arrhythmia. All findings reviewed with patient and her , questions are answered. At this point she is safe for home discharge and clear instructions are given to return to the emergency department should she have recurrent events or actual syncopal episode. <Polly Bo, DO - Last Filed: 03/18/22 09:53> Lab Data Labs: Lab Results 03/15/22 03/15/22 03/15/22 Range/Units 13:52 13:52 16:43 WBC 8.5 (4.5-11.0) X10^3/uL RBC 4.40 (4.0-5.2) X10^6/uL Hgb 13.6 (12.0-16.0) g/dL Hct 39.5 (36-46) % MCV 89.9 (80-100) fL MCH 30.9 (26-34) PG MCHC 34.3 (30-36) % RDW 13.1 (11.6-14.8) % Plt Count 310 (150-400) X10^3/uL Neut % (Auto) 67.4 (50-75) % Lymph % (Auto) 25.0 (25-40) % [place] % (Auto) 5.7 (3-14) % Eos % (Auto) 0.9 L (2-4) % Baso % (Auto) 1.0 (0-2) % Neut # (Auto) 5800 (4632-6824) /uL Lymph # (Auto) 2100 (5391-7411) /uL [place] # (Auto) 500 (0-900) /uL Eos # (Auto) 100 (0-450) /uL Baso # (Auto) 100 (0-100) /uL Sodium 137 (137-145) mmol/L Potassium 4.1 (3.4-5.1) mmol/L Chloride 102 (98-107) mmol/L Carbon Dioxide 27 (22-32) mmol/L BUN 16 (7-17) mg/dL Creatinine 0.78 (0.52-1.04) mg/dL Estimated GFR > 60 (>60) mL/min BUN/Creatinine Ratio 20.5 (6-22) Glucose 120 H (80-110) mg/dL Calcium 10.0 (8.4-10.2) mg/dL Troponin I < 0.012 < 0.012 (0.01-0.034) ng/mL Urine Color Urine Appearance Urine pH (4.5-8.0) Ur Specific [place] (1.000-1.035) Urine Protein (Negative) Urine Glucose (UA) (Negative) g/dL Urine Ketones (NEGATIVE) Urine Occult Blood (Negative) Urine Nitrate (Negative) Urine Bilirubin (NEGATIVE) Urine Urobilinogen (0.2) E.U./dL Ur Leukocyte Esterase (NEGATIVE) Urine RBC (0-5/HPF) Urine WBC (0-5/HPF) Ur Squamous Epith Cells (0-5/HPF) Urine Bacteria (None) Ur Culture Indicated? 03/15/22 Range/Units 17:43 WBC (4.5-11.0) X10^3/uL RBC (4.0-5.2) X10^6/uL Hgb (12.0-16.0) g/dL Hct (36-46) % MCV (80-100) fL MCH (26-34) PG MCHC (30-36) % RDW (11.6-14.8) % Plt Count (150-400) X10^3/uL Neut % (Auto) (50-75) % Lymph % (Auto) (25-40) % [place] % (Auto) (3-14) % Eos % (Auto) (2-4) % Baso % (Auto) (0-2) % Neut # (Auto) (7363-6703) /uL Lymph # (Auto) (4666-4901) /uL [place] # (Auto) (0-900) /uL Eos # (Auto) (0-450) /uL Baso # (Auto) (0-100) /uL Sodium (137-145) mmol/L Potassium (3.4-5.1) mmol/L Chloride (98-107) mmol/L Carbon Dioxide (22-32) mmol/L BUN (7-17) mg/dL Creatinine (0.52-1.04) mg/dL Estimated GFR (>60) mL/min BUN/Creatinine Ratio (6-22) Glucose (80-110) mg/dL Calcium (8.4-10.2) mg/dL Troponin I (0.01-0.034) ng/mL Urine Color Yellow Urine Appearance Clear Urine pH 5.5 (4.5-8.0) Ur Specific [place] 1.010 (1.000-1.035) Urine Protein Negative (Negative) Urine Glucose (UA) Negative (Negative) g/dL Urine Ketones 1+ H (NEGATIVE) Urine Occult Blood 1+ H (Negative) Urine Nitrate Positive H (Negative) Urine Bilirubin Negative (NEGATIVE) Urine Urobilinogen 0.2 (0.2) E.U./dL Ur Leukocyte Esterase Trace H (NEGATIVE) Urine RBC None seen (0-5/HPF) Urine WBC 1-5/hpf (0-5/HPF) Ur Squamous Epith Cells 1-5 /hpf (0-5/HPF) Urine Bacteria Many (>30) H (None) Ur Culture Indicated? Specimen cultured MDM Narrative Medical decision making narrative: 67-year-old woman with 2 weeks of increasing near syncopal episodes. No evidence of acute coronary syndrome, carotid bruits to suggest neurologic etiology, no significant infection, no significant anemia or evidence of bleeding. Care is reviewed with on-call Cardiology and we will expedite outpatient follow-up for event monitoring to see if we can document cardiac arrhythmia. All findings reviewed with patient and her , questions are answered. At this point she is safe for home discharge and clear instructions are given to return to the emergency department should she have recurrent events or actual syncopal episode. 03/18/22 (Anupam) this is supposed to be an addendum to chart. I never saw or evaluated patient. Reviewing cultures. Urine culture came back with E coli. Pansensitive. Prescription for Keflex is sent to [facility]. Nursing staff to call patient. Discharge Plan Departure Patient Disposition: Home Clinical Impression: Near syncope, Situational anxiety Activity Restrictions/Additional Instructions: Thank you for coming in today Your symptoms do sound very anxiety provoking. I agree with your decision to not drive until we get this sorted out. A your workup in the emergency department was very reassuring. Your chest x-ray, EKG, serial troponins(cardiac enzymes), and general chemistries were all very reassuring. We did not see any cardiac arrhythmias while you were in the emergency department. I amconcerned that these near syncopal episodes are related to heart rhythms. I have spoken with Dr. Dill, with [facility], our prop and scenery maker on-call. He will have his office contact you tomorrow to set up heart monitoring as well as an official cardiology consult. In the meantime, I have given you a prescription for .25 mg of clonazepam that can help with anxiety. You can take this up to twice a day. The goal is to decrease your overall level of anxiety without having you feel that you have ?taken a pill? or that you are significantly medicated. This is to use as needed. This prescription was electronically transmitted to [facility] If you have additional episodes or actually do lose consciousness, you do need to return to the emergency department. That includes calling 911 if your at home on [facility]. I wish you the very best. Prescriptions: New clonazepam 0.5 mg tablet 0.25 mg PO BID PRN (Reason: anxiety) Qty: 20 0RF cephalexin 500 mg capsule 500 mg PO BID 7 Days Qty: 14 0RF No Action estradiol 1 mg tablet See Rx Instructions .ROUTE .COMPLEX Qty: 90 3RF Dose Instruction: TAKE ONE TABLET BY MOUTH ONE TIME DAILY Rx Instructions: TAKE ONE TABLET BY MOUTH ONE TIME DAILY norethindrone (contraceptive) [Yarely] 0.35 mg tablet 0.35 mg PO QDAY Qty: 168 2RF Referrals: Aimee Galindo, DO [Primary Care Provider] -
[2022-03-15 17:22] LABS: Troponin I < 0.012 ng/mL (0.01-0.034)
[2022-03-15 18:30] LABS: Appearance Urine UA CLEAR; Bilirubin Urine UA NEGATIVE (NEGATIVE); Color Urine UA YELLOW; Glucose Urine UA NEGATIVE (Negative); Ketones Urine UA 1+ (NEGATIVE); Leukocyte Esterase Urine UA TRACE (NEGATIVE); Nitrite Urine UA POSITIVE (Negative); Occult Blood Urine UA 1+ (Negative); Protein Urine UA NEGATIVE (Negative); Urobilinogen Urine UA 0.2 E.U./dL (0.2)
[2022-03-15 18:36] LABS: pH Urine UA 5.5 (4.5-8.0)
[2022-03-15 18:42] LABS: Bacteria Urine Many (>30); Culture Indicated Urine Specimen Cultured; RBC Urine None Seen (0-5/HPF); Squamous Epithelial Cell Urine 1-5 /HPF (0-5/HPF); WBC Urine 1-5/HPF (0-5/HPF)
[2022-03-15] MEDS: clonazePAM 0.5 MG TABLET 0.25 MG PO (19:16)
== END 2022-03-15 19:19 | disposition home or self-care (01) ==
PROVIDERS: Emergency Medicine; Nurse Practitioner Critical Care Medicine; Emergency Provider Emergency Medicine; PCP Student in an Organized Health Care Education/Training Program
DX: R55 Syncope and collapse (principal); F41.8 Other specified anxiety disorders; R00.2 Palpitations; R42 Dizziness and giddiness
CPT/HCPCS: 36415; 71045; 80048; 81001; 84484; 85025; 87077; 87086; 87186; 93005; 93010; 99284

== ENCOUNTER → 2022-03-23 09:58 | Outpatient (CLI) | payer OTHER, SELFPAY ==
[2022-03-23 11:11] LABS: Hemoglobin A1C% w Est Avg Glu 5.9 % (4.0-6.0)
[2022-03-23 11:41] LABS: Cholesterol 214 mg/dL (140-199); HDL Cholesterol 53 mg/dL (40-60); LDL Cholesterol Calculated 138 mg/dL (<100); Triglycerides 116 mg/dL (35-150)
[2022-03-23 12:25] LABS: Vitamin B12 Reflex MMA if <400 238 pg/mL (239-931)
[2022-03-23 12:41] LABS: TSH w/ Reflex to FT4 2.88 uIU/mL (0.47-4.68)
[2022-03-28 05:13] LABS: Methylmalonic Acid,Serum 995 nmol/L (0-378)
== END ==
PROVIDERS: PCP Student in an Organized Health Care Education/Training Program; Referring Provider Internal Medicine Cardiovascular Disease; Visit Provider Internal Medicine Cardiovascular Disease
DX: R73.9 Hyperglycemia, unspecified (principal); I10 Essential (primary) hypertension; R42 Dizziness and giddiness; R00.2 Palpitations; R09.89 Other specified symptoms and signs involving the circulatory and respiratory systems
CPT/HCPCS: 36415; 80061; 82607; 83036; 83921; 84443

== ENCOUNTER → 2022-04-21 11:29 | Outpatient (CLI) | payer OTHER, SELFPAY ==
--- NOTE | 2022-04-21 11:31 | DI.US.S_ITS ---
PROCEDURE: US CAROTID DOPPLER BI INDICATIONS: BILATERAL CAROTID BRUITS TECHNIQUE: Color and pulse Doppler interrogation was performed of both carotid systems, with image documentation and velocity measurements. COMPARISON: [facility], [place], US CAROTID DOPPLER BI, 05/21/2018, 13:44. FINDINGS: Stenosis calculations are based on SRU (Society of Radiologists in Ultrasound) criteria. Right side: Brachial blood pressure: 133/74 mm Hg. Common carotid artery peak systolic velocity: 89 cm/sec. Internal carotid artery peak systolic velocity: 153 cm/sec. Internal carotid artery end diastolic velocity: 47 cm/sec. External carotid artery peak systolic velocity: 106 cm/sec. ICA/CCA peak systolic ratio: 1.7 Lees scale imaging description: Minimal atherosclerosis noted within the distal common carotid artery. Slight turbulent flow within the mid to distal ICA, likely due to tortuosity. Percent internal carotid artery stenosis: Less than 50%. Vertebral artery: Flow direction is antegrade. Left side: Brachial blood pressure: 121/69 mm Hg. Common carotid artery peak systolic velocity: 88 cm/sec. Internal carotid artery peak systolic velocity: 216 cm/sec. Internal carotid artery end diastolic velocity: 83 cm/sec. External carotid artery peak systolic velocity: 93 cm/sec. ICA/CCA peak systolic ratio: 2.5. Lees scale imaging description: No significant atherosclerosis is identified. There is turbulent flow within the left mid and distal ICA without significant plaque. Vessel is slightly tortuous. Percent internal carotid artery stenosis: 50-69 by velocity criteria. Vertebral artery: Flow direction is antegrade. IMPRESSION: Increased velocities corresponding to 50-69% stenosis within the right internal carotid artery without identifiable stenosis on grayscale imaging favored to be due to tortuosity of the vessel. Consider confirmation with dedicated CTA. Very mild atherosclerosis of the left distal common carotid artery without elevated velocities. Mild increased velocities of the left mid to distal internal carotid artery corresponding to 50-60% stenosis within the right internal carotid artery without identified stenosis on grayscale imaging is also favored to be due to tortuosity of the vessel. Consider confirmation with dedicated CTA. Dictated by: Kendrick Alba D.O. on 04/21/2022 at 15:29 Approved by: Kendrick Alba D.O. on 04/21/2022 at 15:39
== END ==
PROVIDERS: PCP Student in an Organized Health Care Education/Training Program; Referring Provider Internal Medicine Cardiovascular Disease; Visit Provider Internal Medicine Cardiovascular Disease
DX: I65.21 Occlusion and stenosis of right carotid artery (principal); R09.89 Other specified symptoms and signs involving the circulatory and respiratory systems
CPT/HCPCS: 93880

== ENCOUNTER → 2022-05-08 14:34 | Outpatient (CLI) | payer OTHER, SELFPAY ==
[2022-05-08 16:16] LABS: BUN Creatinine Ratio 22.8 (6-22); Blood Urea Nitrogen 18 mg/dL (7-17); Calcium 9.6 mg/dL (8.4-10.2); Carbon Dioxide 27 mmol/L (22-32); Chloride 100 mmol/L (98-107); Estimated Glomerular Filt Rate > 60 mL/min (>60); Glucose 114 mg/dL (80-110); HEMOLYSIS < 15 (0-50); Potassium 3.9 mmol/L (3.4-5.1); Sodium 136 mmol/L (137-145)
== END ==
PROVIDERS: PCP Student in an Organized Health Care Education/Training Program; Referring Provider Internal Medicine Cardiovascular Disease; Visit Provider Internal Medicine Cardiovascular Disease
DX: R09.89 Other specified symptoms and signs involving the circulatory and respiratory systems (principal); R42 Dizziness and giddiness; R03.0 Elevated blood-pressure reading, without diagnosis of hypertension
CPT/HCPCS: 36415; 80048

== ENCOUNTER → 2022-05-11 11:12 | Outpatient (CLI) | payer OTHER, SELFPAY ==
--- NOTE | 2022-05-11 11:26 | DI.CT.S_ITS ---
PROCEDURE: CT ANGIO NECK INDICATIONS: BILATERAL CAROLTID BRUITS TECHNIQUE: After the administration of intravenous contrast, 1.5 mm axial sections acquired from the aortic arch to the [place] of [place]. Maximum intensity projection (MIP) reformats were then performed. COMPARISON: [facility], , CAROTID DOPPLER BI, 04/21/2022, 12:03. FINDINGS: Image quality: Evaluation the mid cervical ICA obscured by motion artifact Carotid system: The great vessels demonstrate a conventional anatomy as they arise from the aortic arch. The origins of the common carotid arteries appear patent. The common carotid arteries demonstrate normal calibers and courses. The bifurcation regions appear normal bilaterally. The internal carotid arteries demonstrate normal caliber and course. Posterior circulation: The origins of the vertebral arteries appear patent. The more superior portions of the vertebral arteries demonstrate normal course and caliber. They join to form a normal appearing basilar artery. Soft tissues: Visualized neck soft tissues demonstrate no suspicious abnormalities. Thyroid gland unremarkable. Scarring noted in the right lung apex Bones: No suspicious bony lesions. Visualized cervical spine appears normally aligned. IMPRESSION: 1. No evidence of atherosclerotic plaque or stenosis in both proximal internal carotid arteries Any quantitative stenosis measurements were performed using the NASCET criteria. Approved by: Emanuel Pitt M.D. on 05/11/2022 at 12:38
== END ==
PROVIDERS: PCP Student in an Organized Health Care Education/Training Program; Referring Provider Internal Medicine Cardiovascular Disease; Visit Provider Internal Medicine Cardiovascular Disease
DX: R09.89 Other specified symptoms and signs involving the circulatory and respiratory systems (principal); R42 Dizziness and giddiness
CPT/HCPCS: 70498

== ENCOUNTER → 2022-05-24 14:47 | Outpatient (CLI) | payer OTHER, SELFPAY ==
--- NOTE | 2022-05-24 14:49 | DI.ECHO.S_ITS ---
[facility] +---------+ : : [address] [place] : : : : [id number] : : : : Phone: [phone]+ Echocardiogram Report + + :Name: ARTUR STEARNS Study Date: 05/24/2022 Height: 68 in : :[facility] ReadingLocation: Weight: 135 lb : : Gender: Female BSA: 1.7 m2 : :: 1955 Age: 67 yrs BP: 162/96 mmHg: :Reason For Study: Arrhythmia : :Ordering Physician: RENA, : :DEVAN Performed By: Kenroy Patton : :Referring: DEVAN APARICIO : + + Interpretation Summary 1) Normal left ventricular thickness, size, wall motion, and systolic function (EF 60-65%). 2) Normal right ventricular size and function. 3) No significant valvular abnormalities. 4) Compared to the Echo done 05/23/2018, no significant change. Procedure: A two-dimensional transthoracic echocardiogram with color flow and Doppler was performed. The study quality was technically adequate. Comparison is made with the echocardiogram of 05/23/2018. The patient was in normal sinus rhythm during the exam. Left Ventricle: The left ventricle is normal in size and wall thickness. Left ventricular systolic function is normal. The ejection fraction is estimated to be 60-65%. There are no focal wall motion abnormalities. Diastolic parameters suggest probable normal left ventricular diastolic function and normal filling pressures. Right Ventricle: The right ventricle is normal in size and function. Atria: Both atria are normal in size. The interatrial septum grossly appears intact with no obvious evidence for an atrial septal defect. Mitral Valve: The mitral valve is normal in structure and function. There is no mitral regurgitation noted. Aortic Valve: The aortic valve is normal in structure and function. There is no aortic valve stenosis. No aortic regurgitation is present. Tricuspid Valve: The tricuspid valve is normal in structure and function. There is trace tricuspid regurgitation. The right ventricular systolic pressure is estimated to be at least 25 mmHg based on an estimated right atrial pressure of 3 mm Hg. Pulmonic Valve: The pulmonic valve is normal in structure and function. There is no pulmonic valvular regurgitation. Great Vessels: The aortic root is normal size. The dimensions of the ascending aorta are normal. The IVC is of normal diameter and collapses greater than 50% with a sniff. This suggests a low right atrial pressure of 3 mm Hg. Pericardium/ Pleura There is no pericardial effusion. MMode/2D Measurements & Calculations LVIDd: 4.5 cm LVOT diam: 2.1 cm LVIDs: 3.0 cm Ao root diam: 3.0 cm FS: 33.3 % asc Aorta Diam: 2.8 cm IVSd: 0.90 cm LVPWd: 0.80 cm LV barnhart. diameter/BSA (cm/m^2): 2.6 LV sys. diameter/BSA (cm/m^2): 1.7 LA dimension: 2.8 cm RA long axis: 4.7 cm LA A2 area: 13.8 cm2 LA A4 area: 14.4 cm2 LA length (vol): 4.5 cm LA vol: 37.3 ml LA vol index: 21.6 ml/m2 TAPSE_phl: 2.5 cm Doppler Measurements & Calculations Ao V2 max: 119.0 cm/sec LVOT Max Keny: 109.0 cm/sec Ao V2 mean: 81.7 cm/sec LV V1 max P.8 mmHg Ao max P.0 mmHg LV V1 VTI: 20.2 cm Ao mean P.0 mmHg CLAYTON(I,D): 3.0 cm2 Ao V2 VTI: 23.5 cm CLAYTON(V,D): 3.2 cm2 sev ratio: 0.86 CLAYTON indexed to BSA (cm^2/m^2): 1.7 MV E max keny: 79.7 cm/sec TR max keny: 232.0 cm/sec MV A max keny: 89.5 cm/sec TR max P.5 mmHg MV E/A: 0.89 Med Peak E' Keny: 8.7 cm/sec E/E' med: 9.2 Lat Peak E' Keny: 10.6 cm/sec E/E' lat: 7.5 E/e' average: 8.3 MV dec time: 0.21 sec SV(LVOT): 70.0 ml AV VR_phl: 0.92 CLAYTON(VTI)/BSA_phl: 1.7 MV P1/2t-pr_phl: 61.0 msec Reading Physician:11:[id number] AM
== END ==
PROVIDERS: PCP Student in an Organized Health Care Education/Training Program; Referring Provider Internal Medicine Cardiovascular Disease; Visit Provider Internal Medicine Cardiovascular Disease
DX: I49.1 Atrial premature depolarization (principal)
CPT/HCPCS: 93306

== ENCOUNTER → 2022-07-12 10:23 | Outpatient (CLI) | payer OTHER, SELFPAY ==
[2022-07-12 13:04] LABS: Cholesterol 141 mg/dL (140-199); HDL Cholesterol 48 mg/dL (40-60); LDL Cholesterol Calculated 81 mg/dL (<100); Triglycerides 60 mg/dL (35-150)
== END ==
PROVIDERS: PCP Student in an Organized Health Care Education/Training Program; Referring Provider Internal Medicine Cardiovascular Disease; Visit Provider Internal Medicine Cardiovascular Disease
DX: E78.5 Hyperlipidemia, unspecified (principal)
CPT/HCPCS: 36415; 80061

== ENCOUNTER → 2022-11-14 12:08 | Outpatient (CLI) | payer OTHER, SELFPAY ==
--- NOTE | 2022-11-14 | DI.US.S_ITS ---
PROCEDURE: US ABD AORTA ANEURYSM SCREEN INDICATIONS: SCREENING TECHNIQUE: Real time scanning was performed of the aorta and iliac arteries, with image documentation. COMPARISON: None. FINDINGS: Aorta: Proximal aortic diameter measures 2.1 x 2 cm. Mid-aorta measures 1.7 x 1.5 cm. Distal aortic diameter is 1.5 x 1.5 cm. Iliac arteries: Right common iliac artery measures 1.1 x 1.1 cm. Left common iliac artery measures 0.9 x 0.9 cm. IMPRESSION: Negative for aneurysm. Dictated by: Rome Nick M.D. on 11/14/2022 at 12:34 Approved by: Rome Nick M.D. on 11/14/2022 at 12:34
== END ==
PROVIDERS: PCP Student in an Organized Health Care Education/Training Program; Referring Provider Student in an Organized Health Care Education/Training Program; Visit Provider Student in an Organized Health Care Education/Training Program
DX: Z13.820 Encounter for screening for osteoporosis (principal); Z13.6 Encounter for screening for cardiovascular disorders; M85.851 Other specified disorders of bone density and structure, right thigh; Z78.0 Asymptomatic menopausal state; Z92.241 Personal history of systemic steroid therapy; Z92.23 Personal history of estrogen therapy
CPT/HCPCS: 76706; 77080

== ENCOUNTER → 2022-12-13 09:52 | Outpatient (CLI) | payer OTHER, SELFPAY ==
[2022-12-15 15:08] LABS: Cholesterol, Total 149 mg/dL (100-199); HDL-Cholesterol 59 mg/dL (>39); HDL-Particle (Total) 32.2 umol/L (>=30.5); LDL Particle 885 nmol/L (<1000); LDL Size 20.3 nm (>20.5); LDL-Cholsterol 75 mg/dL (0-99); LP-IR Score 27 (<=45); Small LDL- Particle 473 nmol/L (<=527); Triglycerides 77 mg/dL (0-149)
== END ==
PROVIDERS: PCP Student in an Organized Health Care Education/Training Program; Referring Provider Student in an Organized Health Care Education/Training Program; Visit Provider Student in an Organized Health Care Education/Training Program
DX: E78.49 Other hyperlipidemia (principal)
CPT/HCPCS: 36415; 80061; 83704

== ENCOUNTER → 2023-08-09 10:30 | Outpatient (CLI) | payer OTHER, SELFPAY ==
--- NOTE | 2023-08-09 | DI.MRI.S_ITS ---
PROCEDURE: MR HEAD/BRAIN WO/W CON INDICATIONS: Syncope and collapse TECHNIQUE: Noncontrast axial T1 spin echo, axial T2 fast spin echo, sagittal and axial FLAIR, coronal T2 fast spin echo, axial gradient echo, axial diffusion and ADC through the brain. After the administration of contrast, axial and coronal and sagittal T1 spin echo with fat saturation through the brain. COMPARISON: [facility], CT, CT SINUS SCREEN WO CON, 02/22/2022, 11:20. FINDINGS: Image quality: Excellent. CSF spaces: Basal cisterns are patent. No extra-axial fluid collections. Ventricles are normal in size and shape. Brain: No midline shift. No intracranial bleeds or masses. No abnormal intracranial enhancement. There is cerebral volume loss for age. There is periventricular white matter chronic small vessel ischemic change. The brainstem appears normal. Diffusion-weighted images demonstrate no acute ischemic insults. No chronic ischemic insults. Normal intravascular flow voids are present. Skull and face: Calvarial marrow is normal in signal. Orbits appear normal. Sinuses: Sinuses and mastoids appear clear. IMPRESSION: Brain MRI within normal limits for age, with brain parenchymal volume loss and chronic small vessel ischemic change. No findings of acute or subacute infarction can be seen. No masses or abnormal enhancement can be seen. Dictated by: Rome Nick M.D. on 08/09/2023 at 13:47 Approved by: Rome Nick M.D. on 08/09/2023 at 13:49
== END ==
PROVIDERS: PCP Student in an Organized Health Care Education/Training Program; Referring Provider Psychiatry & Neurology Neurology; Visit Provider Psychiatry & Neurology Neurology
DX: R55 Syncope and collapse (principal)
CPT/HCPCS: 70553; A9579

== ENCOUNTER → 2024-03-13 09:46 | Outpatient (CLI) | payer OTHER, SELFPAY ==
[2024-03-13 17:43] LABS: BUN Creatinine Ratio 21.9 (6-22); Blood Urea Nitrogen 16 mg/dL (7-17); Calcium 9.7 mg/dL (8.4-10.2); Carbon Dioxide 30 mmol/L (22-32); Chloride 106 mmol/L (98-107); Estimated Glomerular Filt Rate > 60 mL/min (>60); Glucose 107 mg/dL (80-110); HEMOLYSIS < 15 (0-50); Potassium 4.5 mmol/L (3.4-5.1); Sodium 140 mmol/L (137-145)
== END ==
PROVIDERS: PCP Student in an Organized Health Care Education/Training Program; Referring Provider Internal Medicine; Visit Provider Internal Medicine
DX: I77.3 Arterial fibromuscular dysplasia (principal)
CPT/HCPCS: 36415; 80048

== ENCOUNTER → 2025-01-20 13:03 | Outpatient (CLI) | payer MEDICARE, SELFPAY | LOC: LAB 13:06 | PROVIDERS: PCP Student in an Organized Health Care Education/Training Program; Referring Provider Student in an Organized Health Care Education/Training Program; Visit Provider Student in an Organized Health Care Education/Training Program | DX: E83.52 Hypercalcemia (principal); N20.0 Calculus of kidney | CPT/HCPCS: 36415; 82310; 83970 ==

== ENCOUNTER → 2025-01-26 13:21 | Outpatient (CLI) | payer MEDICARE, SELFPAY ==
--- NOTE | 2025-01-26 13:23 | DI.US.S_ITS ---
PROCEDURE: US RENAL COMPLETE INDICATIONS: HYDRONEPHROSIS LEFT KIDNEY TECHNIQUE: Real-time scanning was performed of the kidneys and bladder, with image documentation. COMPARISON: [facility], CT, CT KUB, 01/07/2025, 11:57. FINDINGS: Kidneys: Kidneys are normal in size. Right kidney measures 10.2 cm long; left kidney measures 11.6 cm long. Right renal cortical thickness is 1.1 cm; left renal cortical thickness is 1.8 cm. Simple cysts are present the right kidney the largest measuring 1.2 cm. Scattered punctate echogenic foci the largest measuring 3 mm. Simple left renal cyst is present measuring 8 mm. Focus of increased echogenicity within the left kidney measures 4 mm. Bladder: Pre-void bladder volume is 200 mL. Post-void residual is 0 mL. Pre-void images demonstrate no intraluminal masses or stones. On pre-void images, bilateral ureteral jets are noted with color Doppler interrogation. (Of note, ureteral jets may not be detectable in up to 25% of cases due to insufficient differences in specific gravity between ureteral and bladder urine). Miscellaneous: No free pelvic fluid. IMPRESSION: Bilateral simple renal cysts. Nonobstructing bilateral calculi. Dictated by: Milagro Welsh M.D. on 01/26/2025 at 17:07 Approved by: Milagro Welsh M.D. on 01/26/2025 at 17:09
== END ==
PROVIDERS: PCP Student in an Organized Health Care Education/Training Program; Referring Provider Student in an Organized Health Care Education/Training Program; Visit Provider Student in an Organized Health Care Education/Training Program
DX: N13.30 Unspecified hydronephrosis (principal); N28.1 Cyst of kidney, acquired; N20.0 Calculus of kidney
CPT/HCPCS: 76770